=== PATIENT | male | born 1995 | race Caucasian/White ===

== ENCOUNTER 2017-08-06 16:46 | Emergency (ER) | END 2017-08-06 20:06 | disposition home or self-care (01) ==

== ENCOUNTER 2018-12-10 22:03 | Emergency (ER) | payer OTHER ==
[~2018-12-10] VITALS: Ht 170.2 cm; Wt 61.1 kg
[~2018-12-10 22:03] MED LIST: CYCL10TA7 PO; IBUP-1542 PO; NAPR-688 PO; NAPR-985 PO
[2018-12-10 22:06] VITALS: Ht 170.2 cm; Wt 61.1 kg
[2018-12-10] MEDS ORDERED: HYDROCODONE/APAP (5/325) TAB PO ONE (23:30)
[2018-12-11 00:55] VITALS: BP 109/74; PULSE 49; RESP 18
--- NOTE | 2018-12-18 01:36 | ERD ---
ER Documentation Chief Complaint Chief Complaint RIGHT HAND SWELLING/PAIN X MONDAY. HPI 23-year-old male presents emergency department complaining of right hand swelling and pain for the past 2 days after a fall. Pain is rated 9/10 in severity not alleviated with any medication. He denies any head injury or loss of consciousness. He states he fell directly onto the right hand. No other symptoms or injuries reported currently. ROS All systems reviewed and are negative except as per history of present illness. Medications Home Meds Active Scripts Naproxen* (Naprosyn*) 500 Mg Tablet, 500 MG PO BID PRN for PAIN AND/OR INFLAMMATION, #30 TAB Prov:MARIBELL RIVAS PA-C 12/11/18 Naproxen* (Naproxen*) 500 Mg Tablet, 500 MG PO BID PRN for PAIN, #20 TAB Prov:NADER EDWARD DO 08/06/17 Cyclobenzaprine Hcl* (Cyclobenzaprine Hcl*) 10 Mg Tablet, 10 MG PO TID, #15 TAB Prov:BARNEY KEENE C 12/26/14 Ibuprofen* (Ibuprofen*) 600 Mg Tablet, 600 MG PO Q6 for 7 Days, TAB Prov:JASSI,BARNEY C 12/26/14 Allergies Allergies: Coded Allergies: No Known Drug Allergies (Verified Allergy, Unknown, 08/06/17) PMhx/Soc History of Surgery: Yes (appy ) Anesthesia Reaction: No Hx Neurological Disorder: No Hx Respiratory Disorders: No Hx Cardiac Disorders: No Hx Psychiatric Problems: No Hx Miscellaneous Medical Probl: No Hx Alcohol Use: Yes (social) Hx Substance Use: No Hx Tobacco Use: No Smoking Status: Never smoker FmHx Family History: No diabetes Physical Exam Physical Exam Const: No acute distress Head: Atraumatic Eyes: Normal Conjunctiva ENT: Normal External Ears, Nose and Mouth. Neck: Full range of motion. No meningismus. Resp: No respiratory distress. Skin: No petechiae or rashes Back: No midline or flank tenderness Ext: Tenderness to palpation and soft tissue swelling over the right fifth metacarpal. Patient's range of motion of all fingers of the right hand is intact. He has no snuffbox tenderness to the right upper extremity. No obvious deformity or open fracture noted. Neur: Awake and alert Psych: Normal Mood and Affect Results 24 hrs Current Medications Medications Dose Sig/Josse Start Time Status Last (Trade) Ordered Route PRN Stop Time Admin Dose Reason Admin 1 tab ONCE ONCE 12/10/18 DC 12/10/18 Acetaminophen PO 23:30 23:14 / 12/10/18 23:31 Hydrocodone Bitart (Ariton ()) [place] [id number] Radiology Main Line: [phone] DIAGNOSTIC IMAGING REPORT Patient: JADA CARD : 1995 Age: 23 Sex: M MR #: [id number] DOS: 12/10/18 0000 Ordering MD: MARIBELL RIVAS PA-C Location: [facility] Room/Bed: PROCEDURE: RIGHT HAND XR. CLINICAL INDICATION: Right hand pain status post fall TECHNIQUE: 3 views of the right hand were obtained. COMPARISON: No prior studies are available for comparison. FINDINGS: There is an acute nondisplaced fracture of the midshaft of the fifth metacarpal. Adjacent soft tissue swelling is noted.. Bone mineralization is unremarkable. Joint spaces are otherwise preserved. IMPRESSION: 1. ACUTE NONDISPLACED FRACTURE OF THE MIDSHAFT OF THE FIFTH METACARPAL WITH ADJACENT SOFT TISSUE SWELLING.. RPTAT: AARR Physician Anthony Date Time Electronically viewed and signed by Physician Anthony on 12/10/2018 23:29 JL/ CC: MARIBELL RIVAS PA-C [id number] Procedures/MDM 23-year-old male presents emergency department for fracture of the right hand. The full report interpreted by the radiologist may be viewed above. Patient required splint for immobilization of fracture.Splint Assessment: Neurovascularly intact post splint placement with good fit. Patient's extremity symptoms have stabilized while they have been evaluated in the department and are appropriate for outpatient follow up. No evidence of compartment syndrome, neurologic injury, vascular injury, open joint, open fracture, tendon laceration, or foreign body. No evidence of life-threatening pathology at time of discharge. Pt/family in agreement with discharge plan/diagnosis. Pt/family advised to return immediately with any new or worsening symptoms. Follow-up with primary care physician within the next 1- 2 days. Departure Diagnosis: Primary Impression: Right hand fracture Encounter type: initial encounter Fracture type: closed Qualified Codes: S62.91XA - Unspecified fracture of right wrist and hand, initial encounter for closed fracture Condition: Fair Patient Instructions: Treating Hand Fractures Referrals: [facility] 7 a.m.- 11 p.m. Every Day of the Week NO APPOINTMENT OR AUTHORIZATION NEEDED [facility] [place] Hours: Mon-Fri 9:00 AM - 5:00 PM Additional Instructions: SPECIALIST: YOU HAVE A MEDICAL CONDITION WHICH REQUIRES YOU TO SEE A SPECIALIST WITHIN THE NEXT 1-2 DAYS. PLEASE FOLLOW UP WITH YOUR PRIMARY PHYSICIAN FOR REFFERAL.IF YOU DO NOT HAVE A PRIMARY CARE PHYSICIAN AND/OR YOU CAN NOT AFFORD TO SEE A PHYSICIAN THE FOLLOWING RESOURCES HAVE BEEN SUPPLIED TO YOU. IT IS YOUR RESPONSIBILITY TO BE SEEN BY THE SPECIALIST: ORTHOPEDICS MARIBELL RIVAS PA-C Dec 18, 2018 01:36
== END 2018-12-11 00:56 | disposition home or self-care (01) ==
LOC: FTE 22:03
DX: S69.91XA Unspecified injury of right wrist, hand and finger(s), initial encounter (principal); W18.39XA Other fall on same level, initial encounter; Y92.9 Unspecified place or not applicable
CPT/HCPCS: 29125; 73130; Z7502; Z7610